=== PATIENT | male | born 2000 | race Caucasian/White ===

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

== ENCOUNTER 2022-06-09 10:39 | Emergency (ER) | payer BC ==
[2022-06-09] MEDS ORDERED: Fluorescein 1 MG Ophth Strip EYELF ONE (11:32)
[2022-06-09] MEDS ORDERED: Tetracaine HCl/PF 0.5% 4 ML Bottle EYELF ONE (11:32)
[2022-06-09] MEDS ORDERED: Gentamicin 0.3% Ophth Soln 5 ML Bottle ONE (12:07)
== END 2022-06-09 12:13 | disposition home or self-care (01) ==
LOC: DL.ED 10:39
DX: S05.02XA Injury of conjunctiva and corneal abrasion without foreign body, left eye, initial encounter (principal); F17.210 Nicotine dependence, cigarettes, uncomplicated
CPT/HCPCS: 99282; 99283; A9270; J3490